=== PATIENT | male | born 1935 | race Caucasian/White ===

== ENCOUNTER 2017-01-05 11:57 | Emergency (ER) | payer OTHER, BC ==
[~2017-01-05] VITALS: Ht 182.9 cm; Wt 103.0 kg
[2017-01-05] MEDS ORDERED: NORCO 5/3251 TABLET PO (13:06)
[2017-01-05 13:35] VITALS: BP 157/67
== END 2017-01-05 13:39 | disposition home or self-care (01) ==
LOC: EME 11:57
DX: S42.212A Unspecified displaced fracture of surgical neck of left humerus, initial encounter for closed fracture (principal); W10.1XXA Fall (on)(from) sidewalk curb, initial encounter; Y93.01 Activity, walking, marching and hiking; Z85.46 Personal history of malignant neoplasm of prostate; Z85.038 Personal history of other malignant neoplasm of large intestine; Z87.891 Personal history of nicotine dependence
CPT/HCPCS: 73030; 73060; 99281; 99283